=== PATIENT | male | born 1955 | race Caucasian/White ===

== ENCOUNTER 2022-12-29 08:20 | Day surgery (SDC) | payer MEDICARE, BC, SELFPAY ==
[2022-12-29] VITALS (12 sets, daily range): BP systolic 122–155; BP diastolic 71–94; PULSE 63–84; RESP 12–16; TEMP 36.2–37.1; O2SAT 91–99; BMI 30.2
[2022-12-29] MEDS: SODIUM CHLORIDE 0.9 % (FLUSH) 10 ML SYRINGE IVF (09:00)
[2022-12-29] MEDS: LACTATED RINGERS 1000 ML 1,000 ML 100 ML IV (09:00)
--- NOTE | 2022-12-29 09:02 | SUR.PREOP ---
Patient provided home covid negative results to RN.
--- NOTE | 2022-12-29 09:19 | W.ANESCHARGE ---
Anesthesia Charges Start Date/Time Anesthesia Start Date: 12/29/22 Anesthesia Start Time: 09:42 Stop Date/Time Anesthesia Stop Date: 12/29/22 Anesthesia Stop Time: 11:45
[2022-12-29] MEDS: CEFAZOLIN 2 GM INJ IVP (09:50)
--- NOTE | 2022-12-29 10:09 | W.ANESCHARGE ---
Anesthesia Charges Start Date/Time Anesthesia Start Date: 12/29/22 Anesthesia Start Time: 09:42 Stop Date/Time Anesthesia Stop Date: 12/29/22 Anesthesia Stop Time: 11:45
[2022-12-29] MEDS: BUPIVACAINE 0.25% 30 ML INJECTION ×2 (10:20→11:22)
--- NOTE | 2022-12-29 11:36 | P.GSOP_ITS ---
Operative Note Date of procedure: 12/29/22 Pre-op diagnosis: 1. 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 2. 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 Post-op diagnosis: Same Type of Procedure: 1. Wide local excision of superior mid back melanoma. 2. Wide local excision of right upper lateral arm melanoma. Indications: 67-year-old male was referred to our surgery clinic by Dermatology after a biopsy of 2 suspicious moles came back as melanoma. Patient's biopsy of the superior mid back lesion came back as lentigo maligna melanoma 0.5 mm thick with no ulceration. He had another nevus in the right upper arm that was biopsied. Pathology of this came back as lentigo maligna melanoma 0.3 mm thick with no ulceration. Patient had father with history of melanoma and he of melanoma. On clinical exam in the mid superior back there was a well-healing surgical scar measuring approximately 1.1 cm wide. There is no surrounding erythema. In the right upper anterior lateral arm there was a well-healing biopsy scar measuring 1.2 cm wide. Given patient's clinical history and his pathology results, wide local excision of both melanomas was recommended. The procedure was discussed in detail. The risks associated the procedure including infection, bleeding, and the need for additional procedures were all discussed with the patient, and he agreed to proceed. Procedure Description: After discussing the risks and benefits of the procedure, the patient signed informed consent.? The operative site was marked and the patient was brought to the operating room. Patient was intubated by anesthesia and placed prone on the operating table with all pressure points padded. The operative site was then prepped and draped in the usual sterile fashion.? A time-out was then performed. I first started with wide local excision of superior mid back melanoma. The healing biopsy scar was measured at 1.1 cm wide. Right lateral and left lateral 1 cm margins were marked with a ruler and a marking pen. Local anesthetic was injected at the surgical site. An elliptical vertical incision was then made with a scalpel. The ellipse of skin containing the healing melanoma biopsy site was excised with cautery down to the muscle fascia. It was marked with a single stitch superior and double stitch right. The ellipse of skin was measured at 14.5 x 3.1 cm. Right lateral and left lateral skin flaps were then developed with cautery. The incision was then closed in layers with interrupted 2-0 and 3-0 Vicryl sutures. The skin was closed with a running subcuticular Monocryl stitch. The length of the incision was 16 cm. Steri-Strips and sterile pressure dressing were placed over the incision. The patient was then placed supine on the operating table. The right arm was tucked along his body. The surgical field was reprepped and draped in the usual sterile fashion. We then proceeded with excision of the right upper arm melanoma. The healing biopsy scar was measured at 1.2 cm wide. Medial and lateral margins of 1 cm were measured with a marking pen and a ruler. Local anesthetic was injected in the surgical site. A vertical elliptical skin incision was made in the right upper arm with a scalpel. The ellipse of skin c ontaining biopsy-proven melanoma was excised with cautery down to the muscle fascia. The ellipse of skin was marked with a single stitch superior and double lateral and sent to pathology. This ellipse of skin was measuring 14 x 3.5 cm. Subcutaneous skin flaps were then developed medially and laterally with cautery. Additional local anesthetic was injected at the surgical site. The incision wa s then closed in layers with interrupted 2-0 and 3-0 Vicryl sutures. The skin was closed with a running 4-0 Monocryl stitch. The length of the incision was 16 cm. Steri-Strips and sterile pressure dressings were placed over the incision. ? All counts were correct at the end of the case. ? The patient was then woken and transported to the recovery area in stable condition. ? The patient tolerated the procedure well. Findings: Superior mid back and right upper arm melanoma was excised with 1 cm medial and lateral margins down to the muscle fascia. No tension was noted in the middle of the incisions. Anesthesia: GETA Surgeon: Rosita Alcantar MD Estimated blood loss (mL): 5 Additional Specimen Information: 1. Wide local lifts excision of superior mid back melanoma. 2. Wide local excision of right upper arm melanoma. Condition: stable Disposition: PACU
== END 2022-12-29 13:27 | disposition home or self-care (01) ==
PROVIDERS: Visit Provider Surgery
PROC: (CPT 11606; principal; 2022-12-29 09:45)
DX: C43.59 Malignant melanoma of other part of trunk (principal); C43.61 Malignant melanoma of right upper limb, including shoulder
CPT/HCPCS: 11606 ×2; 12037; 00300; 00840; 88305; J0330; J0690; J1100; J2250; J2405; J2704; J3010; J3490; J7120

== ENCOUNTER 2023-12-29 08:15 | Outpatient (RCR) | payer MEDICARE, BC, SELFPAY | END 2024-03-31 13:38 | disposition home or self-care (01) | PROVIDERS: Visit Provider Family Medicine | DX: M54.16 Radiculopathy, lumbar region (principal); Z51.89 Encounter for other specified aftercare | CPT/HCPCS: 97110; 97140; 97161 ==